=== PATIENT | female | born 1955 | race Two or more races ===

== ENCOUNTER 2025-06-10 12:34 | Emergency (ER) | payer OTHER ==
[~2025-06-10] VITALS: Ht 160 cm; Wt 72.1 kg
[2025-06-10 13:00] VITALS: BP 138/80; O2SAT 100
[2025-06-10] MEDS ORDERED: 0.9 % SODIUM CHLORIDE 1,000 ML IV SCH (14:00)
[2025-06-10] MEDS ORDERED: KETOROLAC TROMETHAMINE 15 MG VIAL IU ONE (14:15)
[2025-06-10] MEDS ORDERED: FAMOTIDINE/PF 20 MG in 0.9 % SODIUM CHLORIDE 8 ML IV PUSH ONE (14:15)
[2025-06-10] MEDS ORDERED: HYOSCYAMINE SULFATE 0.125 MG TAB.SUBL PO ONE (14:15)
[2025-06-10] MEDS ORDERED: ONDANSETRON HCL 4 MG in 0.9 % SODIUM CHLORIDE 50 ML IV ONE (14:15)
[2025-06-10] MEDS ORDERED: KETOROLAC TROMETHAMINE 30 MG VIAL ONE (16:10)
[2025-06-10] MEDS ORDERED: ONDANSETRON HCL 2 MG/ML VIAL ONE (16:10)
[2025-06-10] MEDS ORDERED: FAMOTIDINE/PF 20 MG/2 ML VIAL ONE (16:11)
[2025-06-10] MEDS ORDERED: HYOSCYAMINE SULFATE 0.125 MG TAB.SUBL ONE (16:11)
[2025-06-10] MEDS ORDERED: BARIUM SULFATE 450 ML ORAL.SUSP PO ONE (16:15)
[2025-06-10 16:50] LABS: URINE APPEARANCE Clear; URINE BILIRRUBIN Negative (NEGATIVE); URINE BLOOD Negative; URINE COLOR Yellow; URINE GLUCOSE Negative (NEGATIVE); URINE KETONE 15 (NEGATIVE); URINE LEUKOCYTE Small; URINE NITRATE Negative; URINE PROTEIN Negative (NEGATIVE); URINE UROBILINOGEN 0.2 E.U./dl
[2025-06-10 16:54] LABS: URINE BACTERIA 23.9 uL (0.0-1933); URINE EPITHELIAL CELLS 8.1 uL (0.0-38.8); URINE RBC 8.5 uL (0.0-20.8); URINE WBC 63.0 uL (0.0-23.2)
[2025-06-10 16:59] LABS: BASO % 0.6 % (0.1-1.2); EOS # 0.02 (0.04-0.54); EOS % 0.4 % (0.7-7.0); LYMPH # 2.68 (1.18-3.74); LYMPH % 52.1 % (19.3-53.1); MEAN PLATELET VOLUME 9.80 fl (9.4-12.4); MONO # 0.30 (0.24-0.82); MONO % 5.8 % (4.7-12.5); NEUT # 2.11 (1.56-6.13); NEUT % 41.1 % (34.0-71.1); RED CELL DISTRIBUTION WIDTH 12.2 % (11.6-14.4)
[2025-06-10 17:03] LABS: ERYTHROCYTE SEDIMENTATION RATE 27 mm/hr (0-30)
[2025-06-10 17:07] LABS: INR 1.04; URINE CAST 0.14 uL (0.0-1.40)
[2025-06-10 17:13] LABS: ALT/SGPT 25.0 U/L (12-78); AST/SGOT 9.0 U/L (15-37); BILIRUBIN TOTAL 0.45 mg/dL (0.3-1.2); BUN CREA RATIO 14.0 (7.0-25.0); CREATININE SERUM 0.77 mg/dL (0.55-1.02); GFR 73.69; GLOBULINA 4.1 G/DL (2.4-3.5); GLUCOSE FASTING 99.0 mg/dL (65-100); OSMOLALITY SERUM 284.0 MOSM/KG (275-295)
[2025-06-10] MEDS ORDERED: PEPCID AC20 MG PO (22:17)
[2025-06-10] MEDS ORDERED: CIPRO500 MG PO (22:17)
[2025-06-10] MEDS ORDERED: LEVSIN/SL0.125 MG SL (22:17)
[2025-06-10] MEDS ORDERED: METRONIDAZOLE500 MG PO (22:17)
== END 2025-06-10 23:19 | disposition home or self-care (01) ==
LOC: ER 12:35
PROVIDERS: General Practice
DX: K52.9 Noninfective gastroenteritis and colitis, unspecified (principal); R10.31 Right lower quadrant pain; R10.9 Unspecified abdominal pain; Z88.1 Allergy status to other antibiotic agents; Z91.018 Allergy to other foods
CPT/HCPCS: 36415; 74177; 96365; 96366; 99284; J1885; J2405; J3490; J7030; Q9965